=== PATIENT | female | born 1980 | race Two or more races ===

== ENCOUNTER 2017-01-30 16:49 | Emergency (ER) | payer BC ==
[2017-01-30 16:49] VITALS: BP 129/75
[2017-01-30] MEDS ORDERED: ACET-704 PO (17:15)
[2017-01-30] MEDS ORDERED: NAPR500T PO (17:15)
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
== END 2017-01-30 17:35 | disposition home or self-care (01) ==
LOC: ER 16:49
DX: R19.04 Left lower quadrant abdominal swelling, mass and lump (principal); F98.8 Other specified behavioral and emotional disorders with onset usually occurring in childhood and adolescence; Z98.890 Other specified postprocedural states; V89.2XXA Person injured in unspecified motor-vehicle accident, traffic, initial encounter; Y93.89 Activity, other specified; Y99.8 Other external cause status; Y92.89 Other specified places as the place of occurrence of the external cause
CPT/HCPCS: 99283

== ENCOUNTER → 2017-01-31 | Outpatient (CLI) | payer BC ==
[2017-01-30 16:49] VITALS: BP 129/75
[~2017-01-31] MED LIST: ACET-704 PO; NAPR500T PO
--- NOTE | 2017-01-31 14:11 | RAD ---
EXAM: Soft tissue ultrasound left groin. HISTORY: Painful palpable focus along the left aspect of the mons pubis. Recent trauma. COMPARISON: None. FINDINGS: Sonographic evaluation of the palpable focus of concern along the left aspect of the mons pubis was performed. This reveals an echogenic area in the subcutaneous fat measuring 4.9 x 2.7 x 1.9 cm. Some flow is detected along its periphery. There is no associated fluid collection. A separate painful region is made along the medial aspect of the left upper thigh. It is hypoechoic and measures 3.5 x 1.8 x 1.3 cm. No internal flow is detectable. It is unclear if this is subcutaneous or within the adductor musculature. Scattered small lymph nodes are seen throughout the region. These measure 13 x 6 mm or less and appear benign. IMPRESSION: 1. The region of concern along the left aspect of the mons pubis suggests a subcutaneous ecchymosis. Correlate to exclude cellulitis. 2. A hypoechoic region along the subcutaneous fat or the adductor musculature of the left medial thigh measures 3.5 cm. This may represent a small fluid collection or hematoma. Correlate for an adductor injury. MRI could further evaluate if there is persistent concern. Alternatively, sonographic follow-up could confirm resolution.
== END | disposition home or self-care (01) ==
LOC: US 11:08
PROVIDERS: ATTEND Nurse Practitioner Family
DX: T14.8XXA Other injury of unspecified body region, initial encounter (principal); R19.09 Other intra-abdominal and pelvic swelling, mass and lump; X58.XXXA Exposure to other specified factors, initial encounter; Y93.89 Activity, other specified; Y92.89 Other specified places as the place of occurrence of the external cause; Y99.8 Other external cause status
CPT/HCPCS: 76881

== ENCOUNTER 2017-04-26 15:43 | Emergency (ER) | payer BC ==
[~2017-04-26 15:43] MED LIST changes: +NAPR-683 PO; -NAPR500T PO
[2017-04-26] MEDS ORDERED: ADENOSINE 6 MG/2 ML VIAL IV ONE ×3 (15:50→17:00)
--- NOTE | 2017-04-26 16:29 | PHYS DOC ---
Past History Past Medical History: Other Past Surgical History: Other Alcohol Use: None Drug Use: None Adult General Chief Complaint Chief Complaint: CHEST PAIN HPI HPI Patient is a 36 year old F who presents with palpitations, dizziness and generally not feeling well just prior to arrival. She has no other associated symptoms. She has no known exacerbating or relieving factors. She has never had similar symptoms. Review of Systems Review of Systems Constitutional: Denies fever or chills [] Eyes: Denies change in visual acuity, redness, or eye pain [] HENT: Denies nasal congestion or sore throat [] Respiratory: Denies cough or shortness of breath [] Cardiovascular: No additional information not addressed in HPI [] GI: Denies abdominal pain, nausea, vomiting, bloody stools or diarrhea [] : Denies dysuria or hematuria [] Musculoskeletal: Denies back pain or joint pain [] Integument: Denies rash or skin lesions [] Neurologic: Denies headache, focal weakness or sensory changes [] Endocrine: Denies polyuria or polydipsia [] All other systems were reviewed and found to be within normal limits, except as documented in this note. Family History Family History No pertinent family medical history was reported Current Medications Current Medications Current Medications Medications (Trade) Dose Ordered Sig/Brian Start Time Stop Time Status Last Admin Dose Admin Adenosine (Adenocard) 6 mg 1X ONCE 04/26/17 16:45 04/26/17 16:46 Allergies Allergies Allergies Coded Allergies Type Severity Reaction Last Updated Verified morphine Allergy Unknown 04/26/17 Yes shellfish derived Allergy Unknown 04/26/17 Yes Physical Exam Physical Exam Constitutional: Well developed, well nourished, no acute distress, non-toxic appearance. [] HENT: Normocephalic, atraumatic, bilateral external ears normal, oropharynx moist, no oral exudates, nose normal. [] Eyes: PERRLA, EOMI, conjunctiva normal, no discharge. [] Neck: Normal range of motion, no tenderness, supple, no stridor. [] Cardiovascular: Sinus tachycardia Lungs & Thorax: Bilateral breath sounds clear to auscultation [] Abdomen: Bowel sounds normal, soft, no tenderness, no masses, no pulsatile masses. [] Skin: Warm, dry, no erythema, no rash. [] Extremities: No tenderness, no cyanosis, no clubbing, ROM intact, no edema. [] Neurologic: Alert and oriented X 3, normal motor function, normal sensory function, no focal deficits noted. [] Psychologic: Affect normal, judgement normal, mood normal. [] Current Patient Data Vital Signs Vital Signs Date Time Temp Pulse Resp B/P (MAP) Pulse Ox O2 Delivery O2 Flow Rate FiO2 04/26/17 15:44 98.1 246 18 100 Room Air Lab Results Laboratory Tests Test 04/26/17 16:05 04/26/17 16:45 White Blood Count 7.2 x10^3/uL (4.0-11.0) Red Blood Count 5.07 x10^6/uL (3.50-5.40) Hemoglobin 13.2 g/dL (12.0-15.5) Hematocrit 41.8 % (36.0-47.0) Mean Corpuscular Volume 82 fL (79-100) Mean Corpuscular Hemoglobin 26 pg (25-35) Mean Corpuscular Hemoglobin Concent 32 g/dL (31-37) Red Cell Distribution Width 19.4 % (11.5-14.5) Platelet Count 457 x10^3/uL (140-400) Neutrophils (%) (Auto) 44 % (31-73) Lymphocytes (%) (Auto) 47 % (24-48) Monocytes (%) (Auto) 9 % (0-9) Eosinophils (%) (Auto) 0 % (0-3) Basophils (%) (Auto) 1 % (0-3) Neutrophils # (Auto) 3.2 x10^3uL (1.8-7.7) Lymphocytes # (Auto) 3.4 x10^3/uL (1.0-4.8) Monocytes # (Auto) 0.6 x10^3/uL (0.0-1.1) Eosinophils # (Auto) 0.0 x10^3/uL (0.0-0.7) Basophils # (Auto) 0.0 x10^3/uL (0.0-0.2) Sodium Level 139 mmol/L (136-145) Potassium Level 3.6 mmol/L (3.5-5.1) Chloride Level 103 mmol/L (98-107) Carbon Dioxide Level 25 mmol/L (21-32) Anion Gap 11 (6-14) Blood Urea Nitrogen 8 mg/dL (7-20) Creatinine 0.8 mg/dL (0.6-1.0) Estimated GFR (Cockcroft-Gault) 80.3 Glucose Level 122 mg/dL (70-99) Calcium Level 9.4 mg/dL (8.5-10.1) Troponin I Quantitative < 0.017 ng/mL (0-0.055) Urine Collection Type Unknown Urine Color Yellow Urine Clarity Clear Urine pH 7.0 Urine Specific [place] 1.010 Urine Protein Neg (NEG-TRACE) Urine Glucose (UA) Neg mg/dL (NEG) Urine Ketones (Stick) Neg mg/dL (NEG) Urine Blood Neg (NEG) Urine Nitrite Neg (NEG) Urine Bilirubin Neg (NEG) Urine Urobilinogen Dipstick 0.2 mg/dL (0.2 mg/dL) Urine Leukocyte Esterase Neg (NEG) Urine RBC Occ /HPF (0-2) Urine WBC Occ /HPF (0-4) Urine Squamous Epithelial Cells Mod /LPF Urine Bacteria Few /HPF (0-FEW) Urine Mucus Mod /LPF EKG EKG Initial EKG shows SVT at a rate greater than 220. Following adenosine 6mg IV push her rate decreased to 110 and was noted to be sinus without other significant changes Course & Med Decision Making Course & Med Decision Making Pertinent Labs and Imaging studies reviewed. (See chart for details) [] Dragon Disclaimer Dragon Disclaimer This electronic medical record was generated, in whole or in part, using a voice recognition dictation system. Departure Departure: Impression: Primary Impression: SVT (supraventricular tachycardia) Disposition: 01 HOME, SELF-CARE Condition: STABLE Referrals: TIM DE LEON APRN (PCP) Patient Instructions: Supraventricular Tachycardia Additional Instructions: Lias was seen in the emergency department for palpitations. She was found to have supraventricular tachycardia or rapid heart rate requiring emergency management. She was given IV medications which did improve her condition. She was found to have normal labs. She was monitored in the emergency room without recurrence. She was encouraged to return to the emergency room as soon as possible if she develops similar symptoms. She was also advised follow-up with cardiology in the next 7-10 days for further management. LEW WATSON MD Apr 26, 2017 16:29
[2017-04-26] MEDS ORDERED: IV NORMAL SALINE 1,000ML 1,000 ML IV ONE (16:30)
[2017-04-26 16:48] LABS: BASO % 1 % (0-3); CALCIUM 9.4 mg/dL (8.5-10.1); CREATININE 0.8 mg/dL (0.6-1.0); EOS % 0 % (0-3); GFR 80.3; HEMATOCRIT 41.8 % (36.0-47.0); HEMOGLOBIN 13.2 g/dL (12.0-15.5); LYMPH # 3.4 x10^3/uL (1.0-4.8); LYMPH % 47 % (24-48); MEAN CORPUSCULAR HEMOGLOBIN 26 pg (25-35); MEAN CORPUSCULAR HGB CONC 32 g/dL (31-37); MEAN CORPUSCULAR VOLUME 82 fL (79-100); MONO # 0.6 x10^3/uL (0.0-1.1); MONO % 9 % (0-9); NEUT # 3.2 x10^3uL (1.8-7.7); NEUT % 44 % (31-73); PLATELET COUNT 457 x10^3/uL (140-400); POTASSIUM 3.6 mmol/L (3.5-5.1); RED BLOOD COUNT 5.07 x10^6/uL (3.50-5.40); RED CELL DISTRIBUTION WIDTH 19.4 % (11.5-14.5); WHITE BLOOD COUNT 7.2 x10^3/uL (4.0-11.0)
[2017-04-26 17:20] LABS: BILIRUBIN,URINE NEG (NEG); CLARITY,URINE CLEAR; COLOR,URINE YELLOW; GLUCOSE,URINE NEG (NEG); NITRITE,URINE NEG (NEG); UROBILINOGEN,URINE 0.2 mg/dL (0.2 mg/dL)
[2017-04-26 17:21] LABS: BACTERIA,URINE FEW /HPF (0-FEW); RBC,URINE OCC /HPF (0-2); SQUAMOUS EPITHELIAL CELL,UR MOD /LPF; WBC,URINE OCC /HPF (0-4)
--- NOTE | 2017-04-26 17:38 | EKG ---
[address] [address] Test Date: 2017-04-26 Test Time: 15:49:15 Pat Name: EMILIA JONES Department: Room: Gender: F Watch Leader: : 1980 Requested By: LEW WATSON Order Number: [id number] Reading MD: Measurements Intervals [place] Rate: 246 P: DE: QRS: 75 QRSD: 72 T: 76 QT: 252 QTc: 514 Interpretive Statements SUPRAVENTRICULAR TACHYCARDIA LVH WITH REPOLARIZATION ABNORMALITY ABNORMAL ECG RI6.01 No previous ECG available for comparison
--- NOTE | 2017-04-26 17:39 | EKG ---
[address] [address] Test Date: 2017-04-26 Test Time: 15:59:34 Pat Name: EMILIA JONES Department: Room: Gender: F Nail Sticker: : 1980 Requested By: LEW WATSON Order Number: [id number] Reading MD: Measurements Intervals [place] Rate: 113 P: 46 CT: 140 QRS: 75 QRSD: 80 T: 60 QT: 310 QTc: 431 Interpretive Statements SINUS TACHYCARDIA OTHERWISE NORMAL ECG RI6.01 No previous ECG available for comparison
[2017-04-26 18:00] VITALS: BP 142/81
== END 2017-04-26 18:16 | disposition home or self-care (01) ==
LOC: ER 15:43
DX: I47.1 Supraventricular tachycardia (principal); Z88.5 Allergy status to narcotic agent; Z91.013 Allergy to seafood
CPT/HCPCS: 36415; 80048; 81001; 84484; 85025; 93005; 96361; 96374; 99285; J0153; J7030

== ENCOUNTER 2020-07-15 21:29 | Emergency (ER) | payer BC ==
[~2020-07-15] VITALS: Ht 157.5 cm; Wt 72.7 kg
[2020-07-15 21:48] VITALS: BP 120/85
--- NOTE | 2020-07-16 00:46 | PHYS DOC ---
Past History Past Medical History: Other Additional Past Medical Histor: svt, right shoulder pain Past Surgical History: Other Additional Past Surgical Histo: c section, cardiac ablation, Alcohol Use: None Drug Use: None Adult General Chief Complaint Chief Complaint: LOWER EXT PAIN [facility] HPI Patient is a 39-year-old female who presents with a chief complaint of right calf pain. States he was playing disc golf earlier in the day and went to throw the disc and felt a sharp pain in her calf muscle. States that since then she has had pain in there, 6 out of 10, sharp in nature. States she is able to walk but it causes discomfort. States she thinks her leg is a little more swollen than usual but does not think there is any bruising. Denies any other injuries. Denies any numbness/weakness/tingling. Denies any other injuries. Review of Systems Review of Systems Constitutional: Denies fever or chills [] Eyes: Denies change in visual acuity, redness, or eye pain [] HENT: Denies nasal congestion or sore throat [] Respiratory: Denies cough or shortness of breath [] Cardiovascular: No additional information not addressed in HPI [] GI: Denies abdominal pain, nausea, vomiting, bloody stools or diarrhea [] : Denies dysuria or hematuria [] Musculoskeletal: Denies back pain or joint pain [] Integument: Denies rash or skin lesions [] Neurologic: Denies headache, focal weakness or sensory changes [] Endocrine: Denies polyuria or polydipsia [] All other systems were reviewed and found to be within normal limits, except as documented in this note. Allergies Allergies Allergies Coded Allergies Type Severity Reaction Last Updated Verified shellfish derived Allergy Severe 07/15/20 Yes morphine Allergy Intermediate 07/15/20 Yes Physical Exam Physical Exam Constitutional: Well developed, well nourished, no acute distress, non-toxic appearance. [] HENT: Normocephalic, atraumatic, bilateral external ears normal, oropharynx moist, no oral exudates, nose normal. [] Cardiovascular:Heart rate regular rhythm, no murmur [] Lungs & Thorax: No respiratory distress Skin: Warm, dry, no erythema, no rash. [] Back: No tenderness, Extremities: Tenderness in the middle of the right calf with generalized swelling of the right lower extremity with no obvious bruising. Neurovascular exam intact. Patient able to flex and extend the foot. Able to flex and extend at the knee. Able to flex and extend at the hip. No tenderness at the Achilles tendon with negative Chaudhry's test. Neurologic: Alert and oriented X 3, normal motor function, normal sensory functi on, no focal deficits noted. [] Psychologic: Affect normal, judgement normal, mood normal. [] Current Patient Data Vital Signs Vital Signs Date Time Temp Pulse Resp B/P (MAP) Pulse Ox O2 Delivery O2 Flow Rate FiO2 07/15/20 21:48 98.4 86 18 120/85 (97) 98 Room Air Lab Results Laboratory Tests Test 07/15/20 23:22 D-Dimer (Addis) 0.22 mg/L (0.00-0.50) EKG EKG [] Radiology/Procedures Radiology/Procedures [] Heart Score C/O Chest Pain: No Risk Factors: Risk Factors: DM, Current or recent (<one month) smoker, HTN, HLP, family history of CAD, obesity. Risk Scores: Risk Factors: DM, Current or recent (<one month) smoker, HTN, HLP, family history of CAD, obesity. Course & Med Decision Making Course & Med Decision Making Patient is a 39-year-old female who presents with right calf pain while playing sports. Signs not concerning. Physical exam noted above. D-dimer negative. Right tib- fib Given oral pain medications in the ED. Given ice bag. Imaging with no acute osseous abnormalities and suggestive of soft tissue swelling. Discussed all findings with patient and advised a knee immobilizer, and crutches. Advised to call primary care physician in the morning to discuss soft tissue injury and need for MRI. Advised on pain management at home. Gave return precautions to the ED. Patient grateful, verbalized understanding and agreed with plan of discharge. [] Dragon Disclaimer Dragon Disclaimer This electronic medical record was generated, in whole or in part, using a voice recognition dictation system. Departure Departure: Impression: Primary Impression: Calf pain Additional Impression: Soft tissue injury Disposition: HOME / SELF CARE / HOMELESS Condition: GOOD Referrals: DOROTA MARIN (PCP) Patient Instructions: RICE - Routine Care for Injuries Additional Instructions: Please read all of the attached information carefully. Please keep your knee immobilizer on at most times to prevent further injury. Keep your leg elevated as well and use Tylenol, and ibuprofen and ice as your base for pain control. Please use your pain medicine prescription as needed. If you need to walk, please use your crutches at all time. Please call your primary care physician first thing in the morning to update on your ED visit and set up appointment as soon as possible to discuss the need for an MRI. Please come back to the emergency department immediately with new or concerning symptoms. Scripts Hydrocodone Bit/Acetaminophen (HYDROCODONE-APAP 5-325 ) 1 Each Tablet 1 TAB PO PRN Q6HRS PRN for PAIN for 3 Days, #12 TAB 0 Refills Prov: ANEL BAEZ MD 07/16/20 Problem Qualifiers ANEL BAEZ MD July 16, 2020 00:46
--- NOTE | 2020-07-16 01:01 | RAD ---
INDICATION: Reason: Right lower leg injury 07/12/2020, pain and swelling / Spl. Instructions: / Histor y: COMPARISON: None. IMPRESSION: Right lower le views obtained. Soft tissue swelling is identified overlying the medial malleolus. A definite acute fracture line is not seen. Electronically signed by: Prateek Williamson MD (07/16/2020 12:58 AM) [id number]
[2020-07-16] MEDS: oxyCODONE/APAP 5/325 1 TAB TABLET PO ONE (01:14)
[2020-07-16] MEDS ORDERED: HYDR-2155 PO (01:27)
== END 2020-07-16 01:34 | disposition home or self-care (01) ==
LOC: ER 21:29
DX: S89.91XA Unspecified injury of right lower leg, initial encounter (principal); Z88.5 Allergy status to narcotic agent; Z91.013 Allergy to seafood; X50.9XXA Other and unspecified overexertion or strenuous movements or postures, initial encounter; Y93.53 Activity, golf; Y92.89 Other specified places as the place of occurrence of the external cause; Y99.8 Other external cause status
CPT/HCPCS: 29505; 36415; 73590; 85379; 99284

== ENCOUNTER → 2020-07-17 | Outpatient (CLI) | payer BC ==
[2020-07-15 21:48] VITALS: BP 120/85
[~2020-07-17] MED LIST changes: +HYDR-2155 PO
--- NOTE | 2020-07-17 11:17 | RAD ---
US DPLX VENOUS EXTREMITY LOWER RT History: Reason: RLE PAIN / Spl. Instructions: / History: Comparison: None. Discussion: Multiple longitudinal and transverse high resolution real-time images of the venous system of right l ower extremity were obtained with color and Doppler sampling. The common femoral, superficial femoral , popliteal and proximal calf veins are all patent and demonstrate normal flow and compressibility. N ormal respiratory phasicity and augmentation is present. Impression: 1. No evidence of deep vein thrombosis. Electronically signed by: Magdiel Guerrero DO (07/17/2020 11:15 AM) [id number]
== END ==
LOC: PMG 09:34
PROVIDERS: ATTEND Physician Assistant Medical
DX: M79.661 Pain in right lower leg (principal)
CPT/HCPCS: 93971